=== PATIENT | female | born 1985 | race African-American/Black ===

== ENCOUNTER → 2020-03-19 10:35 | Outpatient (BNVA) | payer BC, SELFPAY | PROVIDERS: Visit Provider Dietitian, Registered | DX: Z76.89 Persons encountering health services in other specified circumstances (principal) ==

== ENCOUNTER → 2020-04-08 13:29 | Outpatient (BNVA) | payer BC, SELFPAY | PROVIDERS: Visit Provider Dietitian, Registered | DX: Z76.89 Persons encountering health services in other specified circumstances (principal) ==

== ENCOUNTER → 2020-08-27 10:45 | Outpatient (BNVA) | payer BC, SELFPAY | PROVIDERS: Visit Provider Physician Assistant ==

== ENCOUNTER → 2020-09-16 08:14 | Outpatient (BNVA) | payer BC, SELFPAY | PROVIDERS: Visit Provider Surgery ==

== ENCOUNTER 2020-09-18 08:18 | Outpatient (REF) | payer BC, SELFPAY ==
[2020-09-19 12:16] LABS: H Pylori Breath Test DETECTED (NOT DETECTED)
== END 2020-09-18 08:19 | disposition home or self-care (01) ==
LOC: HO.LAB 08:18
PROVIDERS: PCP Nurse Practitioner Family; Visit Provider Surgery
DX: E66.01 Morbid (severe) obesity due to excess calories (principal); K21.9 Gastro-esophageal reflux disease without esophagitis; I44.1 Atrioventricular block, second degree
CPT/HCPCS: 83013

== ENCOUNTER 2020-09-26 07:52 | Outpatient (REF) | payer BC, SELFPAY ==
--- NOTE | ~2020-09-26 | US_ITS ---
EXAMINATION: US COMPLETE ABDOMEN WITH LIVER ELASTOGRAPHY CLINICAL INFORMATION: Morbid to severe obesity due to excess calories COMPARISON: None. TECHNIQUE: Real-time imaging of the abdominal viscera. Noninvasive ultrasound liver fibrosis assessment is performed using Momo ElastPQ point quantification shear wave elastography (pSWE) with a C5-2 MHz transducer. Multiple elastography samples are obtained. FINDINGS: PANCREAS: The pancreas is homogeneous in echotexture. ABDOMINAL AORTA: The proximal, middle, and distal aortic segments are normal in caliber. INFERIOR VENA CAVA: Visualized portions are normal. LIVER: Liver is diffusely increased in echogenicity. It is normal size and contour. There is a focal area of hypodensity in the right hepatic lobe similar to previous exam 03/11/2020. However, it is not well visualized on today's exam. There is hepatopedal flow seen in the portal vein on Doppler exam. The right lobe measures 21 cm in length. The left lobe measures 14.2 cm in length. Shear wave liver elastography median stiffness is 1.42 m/s (reference: normal median stiffness is 1.3 m/s or less). IQR/median stiffness to assess sampling precision is 0.18 (reference: good quality data set is IQR/median stiffness of 0.15 or less). GALLBLADDER: The gallbladder wall is mildly thickened measuring 0.2 cm. There is echogenic calcification gallbladder wall, mild nodularity along the inner gallbladder wall suspicious for adenomyomatosis The gallbladder is physiologically distended without evidence of stones, sludge, polyps, wall thickening or pericholecystic fluid. COMMON BILE DUCT: Normal in caliber measuring 0.4 cm in diameter. RIGHT KIDNEY: Normal. No hydronephrosis. No renal calculi or focal parenchymal lesions. The kidney measures 11.6 cm in maximum dimension. LEFT KIDNEY: Normal. No hydronephrosis. No renal calculi or focal parenchymal lesions. The kidney measures 11.2 cm in maximum dimension. SPLEEN: Normal. The spleen measures 10.2 cm in maximum dimension. There is a small splenule measuring 1.6 x 1.5 x 1.7 cm. FREE FLUID: None. US/US abdomen comp w elastography IMPRESSION: 1. Mild hepatic steatosis. Previously seen right hepatic lobe lesion is not well visualized on the present exam. 2. Liver elastography: Mean liver stiffness 1.42. Findings are suggestive of cACLD (suggestive). REFERENCE: Society of Radiologists in Ultrasound Liver Stiffness Thresholds (2020): LIVER STIFFNESS THRESHOLDS: *Liver Stiffness equal or less than 1.3 m/s: High probability of being normal. *Liver Stiffness less than 1.7 m/s: In the absence of other known clinical signs, rules out compensated advanced chronic liver disease. *Liver Stiffness 1.7-2.1 m/s: Suggestive of compensated advanced chronic liver disease but need further test for confirmation. *Liver Stiffness over 2.1 m/s: Rules in compensated advanced chronic liver disease. *Liver Stiffness over 2.4 m/s: Suggestive of clinically significant portal hypertension. QUALITY OF DATA SET: *IQR/Median value equal or less than 0.15 implies a quality data set. *IQR/Median value over 0.15 implies a poor quality data set. SIGNIFICANT CHANGE FROM PRIOR EXAM: Significant change if liver stiffness measurement is 10% or greater from prior exam. OTHER CONSIDERATIONS: The stage of liver fibrosis may be overestimated in the setting of acute hepatitis, liver inflammation, elevated liver function tests, hepatic vascular congestion, obstructive cholestasis, non-fasting state, and infiltrative diseases such as amyloidosis and lymphoma. In some patients with NAFLD, the liver stiffness thresholds for compensated advanced chronic liver disease may be lower. In causes other than viral hepatitis and NAFLD, liver stiffness thresholds are not well established.
== END 2020-09-26 07:53 | disposition home or self-care (01) ==
LOC: HO.US 07:52
PROVIDERS: PCP Nurse Practitioner Family; Visit Provider Surgery
DX: D18.00 Hemangioma unspecified site (principal); E66.01 Morbid (severe) obesity due to excess calories; I44.1 Atrioventricular block, second degree; K21.9 Gastro-esophageal reflux disease without esophagitis
CPT/HCPCS: 76705; 76981

== ENCOUNTER → 2020-10-01 13:15 | Outpatient (BNVA) | payer BC, SELFPAY | PROVIDERS: Visit Provider Dietitian, Registered | DX: E66.01 Morbid (severe) obesity due to excess calories (principal); Z68.43 Body mass index [BMI] 50.0-59.9, adult | CPT/HCPCS: 97803 ==

== ENCOUNTER → 2020-10-07 08:42 | Outpatient (BNVA) | payer BC, SELFPAY | PROVIDERS: Visit Provider Surgery ==

== ENCOUNTER → 2020-11-05 08:19 | Outpatient (BNVA) | payer BC, SELFPAY | PROVIDERS: Visit Provider Dietitian, Registered | DX: E66.01 Morbid (severe) obesity due to excess calories (principal) | CPT/HCPCS: 97803 ==

== ENCOUNTER 2024-08-09 08:08 | Emergency (ER) | payer OTHER, SELFPAY ==
[2024-08-09 08:13] VITALS: BP 158/92; PULSE 96; RESP 22; TEMP 36.6; O2SAT 99; BMI 53.6
[2024-08-09 10:09] LABS: MANUAL DIFF FLAG NO
[2024-08-09 10:12] LABS: Basophils Percent Auto 0.1 % (0-2); Eosinophils Absolute Auto 0.1 X10*3/uL (0.0-0.4); Eosinophils Percent Auto 0.8 % (0-4); Hematocrit 37.7 % (37.0-47.0); Hemoglobin 12.5 g/dl (12.0-16.0); Imm Gran Abs Auto 0.04 X10*3/uL (0.00-0.03); Imm Gran Pct Auto 0.4 % (0.0-0.4); Lymphocytes Absolute Auto 2.3 X10*3/uL (1.2-4.9); Lymphocytes Percent Auto 24.1 % (20-40); Mean Corpuscular HGB Conc 33.2 g/dl (31.0-35.0); Mean Corpuscular Hemoglobin 27.7 pg (27.0-33.0); Mean Corpuscular Volume 83.6 fL (80.0-98.0); Mean Platelet Volume 9.3 fL (9.4-12.3); Monocytes Absolute Auto 0.4 X10*3/uL (0.1-1.2); Monocytes Percent Auto 3.9 % (2-11); Neutrophils Absolute Auto 6.8 x10*3/uL (2.0-8.3); Neutrophils Percent Auto 70.7 % (45-73); Platelet Count 454 X10*3/uL (160-400); Red Blood Count 4.51 X10*6/uL (4.20-5.50); Red Cell Distribution Width 14.1 % (11.0-16.0); White Blood Count 9.6 X10*3/uL (4.8-10.8)
[2024-08-09 10:37] LABS: Alanine Aminotransferase 10 U/L (0-31); Albumin Level 3.7 g/dL (3.5-5.0); Anion Gap 9 (12-20); Aspartate Amino Transferase 16 U/L (5-31); Bilirubin Direct 0.1 mg/dL (0.0-0.5); Bilirubin Total 0.3 mg/dL (0.0-1.0); Blood Urea Nitrogen 13 mg/dL (9-16); Calcium 9.2 mg/dL (8.4-10.2); Carbon Dioxide 26 mmol/L (22-29); Chloride 107 mmol/L (96-108); Creatinine Clr Calc Pharmacy 147.2; Estimated Glomerular Filt Rate > 60; Glucose Random 89 mg/dL (60-115); Lipase 22 U/L (8-78); Potassium 4.4 mmol/L (3.3-5.1); Sodium 138 mmol/L (135-145); Total Protein 8.5 g/dL (6.5-8.0)
[2024-08-09 11:06] LABS: Alkaline Phosphatase 111 U/L (39-117)
[2024-08-09 11:19] LABS: Appearance Urine Clear; Color Urine Yellow; Glucose Urine UA Negative (Negative); Leukocyte Esterase Urine Small (1+) (Negative); Nitrite Urine Negative (Negative); UMIC TRIGGER UACC YES; Urine Blood Negative (Negative); Urine Ketones Negative (Negative); Urine Protein 30 (1+) mg/dL (Neg-Trace)
[2024-08-09 11:27] LABS: Bacteria Urine 2+ (None Seen); Hyaline Casts Urine 0-2 /LPF (0-2); RBC Urine 0-2 /HPF (0-2); UACC Culture Trigger YES; WBC Urine 0-5 /HPF (0-5)
[2024-08-09 13:05] LABS: UPreg QC Valid YES; Urine Pregnancy NEGATIVE (NEGATIVE)
[2024-08-09 13:11] LABS: Amphetamine Screen Urine Not Detected (Not Detect); Barbiturates, Urine Not Detected (Not Detect); Benzodiazepines Screen Urine Not Detected (Not Detect); Buprenorphine Scr Not Detected (Not Detect); Cannabinoid Screen Urine Not Detected (Not Detect); Cocaine Screen Urine Not Detected (Not Detect); Fentanyl, urine Not Detected (Not Detect); Methadone Screen, Urine Not Detected (Not Detect); Opiate Screen Urine Not Detected (Not Detect); Oxycodone Screen Urine Not Detected (Not Detect); Phencyclidine Screen Urine Not Detected (Not Detect)
[2024-08-09 13:32] VITALS: BP 161/101; PULSE 87; RESP 20; TEMP 36.3; O2SAT 100
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
[2024-08-09 13:45] VITALS: BP 161/101; PULSE 87; RESP 20; TEMP 36.3; O2SAT 100
--- NOTE | 2024-08-09 13:45 | ECG_ITS ---
Test Reason : HYPERTENSIVE Blood Pressure : */* mmHG Vent. Rate : 89 BPM Atrial Rate : 89 BPM P-R Int : 130 ms QRS Dur : 80 ms QT Int : 364 ms P-R-T Axes : 50 -21 2 degrees QTcB Int : 442 ms Normal sinus rhythm Minimal voltage criteria for LVH, may be normal variant ( R in aVL ) Borderline ECG When compared with ECG of 23-Feb-2018 16:07, No significant change was found Referred By: Yuliana Albert Electronically Signed By: Александр Grey
--- OUTSIDE RECORDS SUMMARY | 2024-08-09 15:55 | XMS_ITS | Referral Summary ---
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 Role Phone Amina Parks NP Primary Care Provider [phone] Allergies No known active allergies Medications atovaquone-prog uaniL (MALARONE) 250-100 mg 1 tablet orally daily for 1-2 days before travel, daily during travel and for 7 days after returning home 23 tablet Active Active Problems No known active problems Immunizations Immunization Administration Dates Next Due Hepatitis A Vaccine, Adult Dosage 06/16/2022 Typhoid Vi Capsular Polysaccharide Vaccine 06/16 Yellow Fever Vaccine 06/16/2022 Social History Tobacco Use Types Packs/Day Years Used Date Smoking Tobacco: Never Assessed Comments Unknown Sex and Gender Information Value Date Recorded Sex Assigned at Female 06/15/2022 5:18 PM EST Legal Sex Female 7:05 PM EDT Gender Identity Female 06/15/2022 5:18 PM EST Sexual Orientation Straight 06/15/2022 5: 18 PM EST Last Filed Vital Signs Vital Sign Reading Time Taken Comments Blood Pressure - - Pulse - - Temperature 36.8 ??C (98.2 ??F) 06/16/2022 2:58 PM ES T Respiratory Rate - - Oxygen Saturation - - Inhaled Oxygen Concentration - - Weight 144.6 kg (318 lb 12.6 oz) 06/16/2022 2:58 PM EST Height - - Body Mass Index - - Plan of Treatment Not on file Insurance [facility] HMO/POS Care Teams 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
--- OUTSIDE RECORDS SUMMARY | 2024-08-09 15:55 | XMS_ITS | Clinical Summary ---
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 Name Role Phone Amina Parks NP Primary Care Provider [phone] Allergies No known active allergies Medications atovaquone-prog [...] Mass Index - - Plan of Treatment Health Maintenance Due Date Last Done Comments Cervical Cancer Screening 1986 HIV Screening 1986 HPV and Pap Smear 1986 Hepatitis C Screening 1986 Pap Smear 1986 Varicella Vaccines (1 of 2 - 13+ 2-dose series) 1999 Hepatitis B Vaccines (1 of 3 - 19+ 3-dose series) 2005 COVID-19 Vaccine ( - 2023- season) 2024 07/03/2021, 07/24/2020, 06/23/2020 Influenza Vaccine (#1) 2024 , 07/20/2021, 03/09/2020, Additional history exists Alcohol/Substance Use Screening 06/12/2024 Depression Screening and Follow-Up 06/12/2024 Social Drivers of Health Annual Screening 06/12/2024 DTaP,Tdap,and Td Vaccines (3 - Td or Tdap) 11/29/2028 11/29/2018, 11/29/2017 RSV Vaccine (60+ years old and patients) (1 - 1-dose 75+ series) 2061 Pneumococcal Vaccine: Pediatric (0-5 Years) and At-Risk Patients (6-50 Years) Aged Out No longer eligible based on patient's age to complete this topic Insurance HMO/POS Care Teams Guest House Manager Relationship Specialty Start Date End Date Amina Parks NP [address] [place] [address] PCP - General 07/23/20
--- OUTSIDE RECORDS SUMMARY | 2024-08-09 15:55 | XMS_ITS | Clinical Summary ---
Author Organization [address] [place] [address] [place] [phone] Phone Care Team Providers Care Community Assistant Name Role Phone Avril Yates MD Primary Care Provider Allergies Active Allergy Reactions Criticality Noted Date Comments Fklodxwrpuml-Feladohocr-Nv xtrs 10/04/2019 Zosyn [Piperacillin-tazobactam In D5w] Other Reaction(s): Hives/Urticaria Medications cholecalciferol (VITAMIN D-3) 1,250 mcg (50,000 unit) capsule Take 1 Cap by mouth once a week. 9 Active hydroCHLOROthia zide (HYDRODIURIL) 25 mg tablet Take 1 Tablet by mouth daily. Active omeprazole (PriLOSEC) [address] capsule Take 1 Cap by mouth 2 times daily (before meals) for 30 days. 0 Active triamcinolone (KENALOG) 0.1 % lotion Apply to affected areas twice daily as needed sparingly 9 Active Active Problems Problem Noted Date Diagnosed Date Morbid obesity with BMI of 45.0-49.9, adult 03/13 Hypertension 09/28/2023 Overview (04/03/2024): Last Assessment & Plan: Suboptimally controlled in the office but better controlled at home per patient. Will continue monotherapy with hydrochlorothiazide 25 mg daily for now. I asked her to keep a log of her blood pressures at home to assess if she is being adequately controlled at home. Recommend low-sodium diet-1500 mg of sodium or less per day and regular aerobic exercise. Palpitations 09/28/2023 Overview (04/03/2024): Holter monitor on 03/06/2018-??sinus rhythm with an average heart rate of 66 bpm with rare APCs, rare PVCs, and singular episodes of second-degree AV block type I at 3 AM 2 week auto trigger loop monitor from 09/12/2018-10/05/2018-normal sinus rhythm and sinus tachycardia without any evidence of AV block Last Assessment & Plan: I suspect this may actually be an awareness of uncontrolled blood pressure and possibly an awareness of premature contractions. We have never detected major arrhythmias on workup as detailed under past medical history. Continue to monitor for more frequent or persistent or severe symptoms. No further workup for the time being. Chest pain 08/14/2023 Overview (04/03/2024): Exercise tolerance test on 03/02/2018-exercised for 6 minutes and 16 seconds without T changes stopping for fatigue and leg cramps, achieved 94% of MPHR Echocardiogram on 08/30/2018 (I've reviewed the images myself)-which showed mild, concentric LV hypertrophy with normal LV cavity size and systolic function, no regional wall motion abnormalities with an ejection fraction of 55-60%, normal RV size and systolic function, normal RV systolic pressure, normal LV diastolic function, no significant valve disease Last Assessment & Plan: She has had numerous episodes of atypical chest pain and has ruled out with serial cardiac enzymes for acute coronary syndrome and has had reassuring noninvasive testing as above as an outpatient. It is possible that she may have microvascular disease and she certainly has risk factors for it. However, I generally would manage this with lifestyle modification. It could also be musculoskeletal pain. At this point, would focus on intense lifestyle modification including regular aerobic exercise and diet to promote significant weight loss. Consider use of weight loss medication per PCP-specifically GLP-1 agonists which may have cardioprotective benefits as well. However ultimately this is a conversation between the patient and her primary to discuss potential risks and benefits. H. pylori infection 10/16/2019 Mobitz (type) I (Wenckebach's) atrioventricular block 06/01/2018 Positive PPD 01/10/2014 Immunizations Name Administration Dates Next Due Influenza trivalent, with pr eservative (Fluzone; Afluria) 6mo and older 03/18/2016,03/27/2013 MMR, measles mumps and rubel la Live (Priorix; M-M-R II) 12mo and older 04/23/2014 Tdap Tetanus diptheria acell ular pertussis (Boostrix; Adacel) 7yo and older 11/29/2018 Surgical History Surgery Date Site/Laterality Comments WISDOM TOOTH EXTRACTION PROCEDURE: HISTORICAL WISDOM TEETH EXTRACTION Medical History Medical History Date Comments Morbid obesity with BMI of 4 5.0-49.9, adult ([facility]) 06/17/2013 DX:Morbid obesity with BMI o f 45.0-49.9, adult ([facility]); COMMENT: BMI 45.15 on 10/05/12. Early GTT 94 WNL Positive PPD 01/10/2014 DX:Positive PPD GERD (gastroesophageal reflu x disease) DX:GERD (gastroesophageal re flux disease) Family History Medical History Relation Name Comments Breast cancer Aunt 1 maternal Breast cancer Aunt 2 paternal Diabetes Father Hypertension Father Other: septicemia Father No Known Problems Maternal Grandfather hx unknown Other: kidney failure Maternal Grandmother Other: Grave's Mother No Known Problems Paternal Grandfather pe rson is unknown Other: pancreatitis Paternal Grandmother Depression Sister 1 Diabetes Sister 1 dx at age 15 on metformin Stroke Sister 1 Depression Sister 2 Obesity Sister 2 Cervical cancer Neg Hx Colon cancer Neg Hx Ovarian cancer Neg Hx Uterine cancer Neg Hx Relation Name Status Comments Aunt 1 maternal Aunt 2 paternal Father septicemia Maternal Grandfather Alive Maternal Grandmother Mother Alive graves, Paternal Grandfather Other Paternal Grandmother Sister 1 Alive Sister 2 Alive Social History Tobacco Use Types Packs/Day Years Used Date Smoking Tobacco: Never Smokeless Tobacco: Never Alcohol Use Standard Drinks/Week Comments No 0 (1 standard drink = 0.6 oz pur e alcohol) Comments Unknown Sex and Gender Information Value Date Recorded Sex Assigned at Not on file Legal Sex Female 9:34 AM EST Gender Identity Not on file Sexual Orientation Not on file Obstetrics History Last Filed Vital Signs Vital Sign Reading Time Taken Comments Blood Pressure 160/80 08/21/2023 2:02 PM EDT Sit ting L Arm Pulse 91 08/21/2023 2:02 PM EDT Temperature - - Respiratory Rate - - Oxygen Saturation - - Inhaled Oxygen Concentration - - Weight 158 kg (348 lb) 08/21/2023 2:02 PM EDT Height 170.2 cm (5' 7 ) 08/21/2023 2:02 PM EDT Body Mass Index 54.5 08/21/2023 2:02 PM EDT Plan of Treatment Health Maintenance Due Date Last Done Comments Hepatitis B Vaccines (1 of 3 - 19+ 3-dose series) 2005 Cervical Cancer Screening: P ap Smear 09/11/2020 09/11/2017, 09/11/2017, 09/11/2017 Depression Screening 05/09/2022 Social Influencers of Health Screening 05/09/2022 Hypertension/CHF/CAD Annual BMP Blood Test 01/05/2024 01/16/2020 COVID-19 Vaccine (1 - 2023-2 5 season) 2024 Influenza Vaccine (#1) 2024 6, 03/27/2013 Cholesterol Screening (Lipid Panel) 04/19/2024 04/19/2019 DTaP,Tdap,and Td Vaccines (2 - Td or Tdap) 11/29/2028 11/29/2018 MMR Vaccines Aged Out 04/23/2014 No longer eligi ble based on patient's age to complete this topic HIV Screening Completed 05/18/2018 Hepatitis C Screening Completed 07/15/2019 HIB Vaccines Aged Out No longer eligi ble based on patient's age to complete this topic HPV Vaccines Aged Out No longer eligi ble based on patient's age to complete this topic Hepatitis A Vaccines Aged Out No long er eligible based on patient's age to complete this topic IPV Vaccines Aged Out No longer eligi ble based on patient's age to complete this topic Meningococcal ACWY Vaccine Aged Out N o longer eligible based on patient's age to complete this topic Meningococcal B Vacine Aged Out No lo nger eligible based on patient's age to complete this topic Pneumococcal Vaccine: Pediatrics (0 to 5 Years) and At-Risk Patients (6 to 64 Years) Aged Out No longer eligible b ased on patient's age to complete this topic RSV Immunization Patients Under 20 months Aged Out No longer eligible b ased on patient's age to complete this topic Varicella Vaccines Aged Out No longer eligible based on patient's age to complete this topic Procedures Procedure Name Priority Date/Time Associated Diagnosis Comments ANNUAL BMP BLOOD TEST Routine 01/16/2020 HEPATITIS C SCREENING Routine 07/15/2019 LIPID PANEL Routine 04/19/2019 HIV SCREENING Routine 05/18/2018 PAP SMEAR Routine 09/11/2017 from Last 3 Months or Most Recently Relevant to Health Maintenance Results * Annual BMP Blood Test (01/16/2020) Pathologist [facility] Annual BMP Blood Test Abstracted [facility] Provider MD HEALTH MAINTENANCE Final Result * Hepatitis C Screening (07/15/2019) [facility] Hepatitis C Screening Abstracted [facility] Provider MD HEALTH MAINTENANCE Final Result * (ABNORMAL) Lipid panel (04/19/2019) [facility] LDL/HDL Ratio 4 0 - 4 Triglycerides 101 0 - 150 mg/dL Cholesterol 164 0 - 200 mg/dL HDL 37(A) >=40 mg/dL LDL Cholesterol 107(A) 0 - 100 mg/dL Blood Venous blood specimen / Unknown [facility] Provider MD LAB BLOOD ORDERABLES Karis l Result * HIV Screening (05/18/2018) [facility] HIV Screening Abstracted [facility] Provider HEALTH MAINTENANCE Final Result * Pap smear (09/11/2017) 09/11/2017 Narrative HISTORICAL TESTING LAB RESULTING AGENCY - 09/13/2017 4:36 PM EDT [id number] THINPREP PAP, IMAGED: NEGATIVE FOR SQUAMOUS INTRAEPITHELIAL LESION AND MALIGNANCY ??. RESULT OF APTIMA HIGH RISK HPV ASSAY: ? NEGATIVE ?? (SEROTYPES 16,18,31,33,35,39,45,51,52,56,58,59,66,68) LINDSAY LATIF(ASCP) (CASE ELECTRONICALLY SIGNED 09 13 2017) ADEQUACY: SATISFACTORY. ENDOCERVICAL/TRANSFORMATION ZONE COMPONENT ABSENT. SOURCE: THINPREP PAP HPV ANY DX: ??REFLEX 16 AND 18, CERVICAL, IMAGED: CLINICAL INFORMATION: HPV ANY DIAGNOSIS. PAP HX NEG [Z12.4] Shirin Hartmann MD LAB CYTOLOGY ORDERABLES Fin al Result HISTORICAL TESTING LAB RESULTING AGENCY from Last 3 Months or Most Recently Relevant to Health Maintenance Insurance [employer] Care Teams Community Assistant Relationship Specialty Start Date End Date Avril Yates MD [address] [place], [place] PCP - General 03/28/24
== END 2024-08-09 14:04 | disposition home or self-care (01) ==
PROVIDERS: Physician Assistant; Emergency Provider Emergency Medicine
DX: R42 Dizziness and giddiness (principal); I10 Essential (primary) hypertension; R94.31 Abnormal electrocardiogram [ECG] [EKG]; Z51.81 Encounter for therapeutic drug level monitoring; Z79.899 Other long term (current) drug therapy
CPT/HCPCS: 36415; 80048; 80076; 80307; 81001; 81025; 83690; 85025; 87086; 93005; 99283

== ENCOUNTER → 2024-08-09 13:45 | Outpatient (BNV) | payer OTHER, SELFPAY | PROVIDERS: Emergency Provider Emergency Medicine; Visit Provider Internal Medicine Cardiovascular Disease | DX: R42 Dizziness and giddiness (principal); R94.31 Abnormal electrocardiogram [ECG] [EKG] | CPT/HCPCS: 93010 ==